=== PATIENT | female | born 1995 | race African-American/Black ===

== ENCOUNTER 2017-05-28 22:36 | Emergency (ER) | payer OTHER ==
[~2017-05-28] VITALS: Ht 170.2 cm; Wt 69.4 kg
[2017-05-28] MEDS ORDERED: FAMOTIDINE 20 MG/2 ML VIAL IVP ONE (23:00)
[2017-05-28] MEDS ORDERED: ONDANSETRON PF 4 MG/2 ML VIAL. IV ONE (23:00)
--- NOTE | 2017-05-28 23:02 | PHYS DOC ---
General Chief Complaint: NAUSEA/VOMITING/DIARRHEA Stated Complaint: N/V/D Time Seen by MD: 22:53 Source: patient Exam Limitations: no limitations Problems: History of Present Illness Initial Comments Patient is a 22-year-old female who comes to the ED complaining of nausea vomiting and diarrhea. Patient states that earlier today she developed sudden onset generalized abdominal discomfort with vomiting and diarrhea. She states she's had numerous episodes of nonbloody emesis and loose watery stools. She now has a headache and feels very weak with a very dry mouth and thinks she needs some fluids. She denies any travel or bad food exposure no focal abdominal pain complaints. No past medical history no surgeries patient is normally healthy. Timing/Duration: other Severity: severe Modifying Factors: worse with eating Associated Symptoms: headaches, nausea/vomiting, weakness Allergies: Coded Allergies: No Known Drug Allergies (Unverified , 05/28/17) Past Medical History Medical History: no pertinent history Surgical History: noncontributory Social History Smoker: non-smoker Alcohol: none Drugs: none Review of Systems Constitutional: denies chills, denies diaphoresis, denies fever, malaise, weakness Respiratory: denies cough, denies shortness of breath, denies wheezing Cardiovascular: denies chest pain, denies palpitations, denies syncope Gastrointestinal: see HPI Genitourinary: denies dysuria, denies frequency, denies hematuria Musculoskeletal: denies back pain, denies joint swelling, denies neck pain Psychiatric/Neurological: see HPI, headache, denies numbness, denies paresthesia, denies weakness Physical Exam General Appearance: mild distress (nausea, appears uncomfortable) Eyes: bilateral eye normal inspection, bilateral eye PERRL, bilateral eye EOMI Ear, Nose, Throat: hearing grossly normal, normal ENT inspection (mucous membranes very dry), normal pharynx Neck: non-tender, supple Respiratory: normal breath sounds, no respiratory distress Cardiovascular: normal peripheral pulses, regular rate, rhythm Gastrointestinal: soft (nondistended, abdominal muscle tenderness negative Martinez negative McBurney bowel sounds are normal no palpable mass) Back: no CVA tenderness, no vertebral tenderness Extremities: normal range of motion, non-tender, normal inspection Neurologic/Psychiatric: 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 Labs unremarkable. Urine dip positive for leukocyte esterase, urine culture is pending. Urine test is negative. The patient has tolerated by mouth fluids and is feeling better with a liter bolus of IV fluids. I discussed signs and symptoms to monitor and urgent indications to return. I discussed over-the- counter prescription medications and oral hydration as well as time off work. Patient expressed agreement and understanding with treatment plan. Departure Time of Disposition: 00:30 Disposition: 01 HOME, SELF-CARE Diagnosis: gastroenteritis, dehydration Condition: IMPROVED Patient Instructions: Dehydration, Adult, [id number], Viral Gastroenteritis, [id number] Additional Instructions: Clear liquids today, advance to bland diet tomorrow as tolerated. Aggressive hydration with Gatorade or water. [id number] Tylenol as needed. Eat banana daily to keep potassium elevated. Prescription: Zofran ODT No work or PT until 06/01. Follow-up at [facility] in 2-3 days for recheck. Return to ED with new or changing symptoms. KATHLEEN RUSSELL DO May 28, 2017 23:02
[2017-05-28] MEDS ORDERED: IV NORMAL SALINE 1,000ML 1,000 ML IV SCH (23:30)
[2017-05-28 23:35] LABS: BASO % 0 % (0-3); EOS # 0.1 x10^3/uL (0.0-0.7); EOS % 1 % (0-3); HEMATOCRIT 46.1 % (36.0-47.0); HEMOGLOBIN 15.6 g/dL (12.0-15.5); LYMPH # 0.6 x10^3/uL (1.0-4.8); LYMPH % 8 % (24-48); MEAN CORPUSCULAR HEMOGLOBIN 30 pg (25-35); MEAN CORPUSCULAR HGB CONC 34 g/dL (31-37); MEAN CORPUSCULAR VOLUME 89 fL (79-100); MONO # 0.4 x10^3/uL (0.0-1.1); MONO % 5 % (0-9); NEUT % 86 % (31-73); PLATELET COUNT 173 x10^3/uL (140-400); RED BLOOD COUNT 5.19 x10^6/uL (3.50-5.40); RED CELL DISTRIBUTION WIDTH 14.9 % (11.5-14.5); WHITE BLOOD COUNT 8.1 x10^3/uL (4.0-11.0)
[2017-05-28 23:44] LABS: ALBUMIN 3.7 g/dL (3.4-5.0); ALBUMIN/GLOBULIN RATIO 0.8 (1.0-1.7); CALCIUM 9.2 mg/dL (8.5-10.1); GFR 82.4; TOTAL BILIRUBIN 0.8 mg/dL (0.2-1.0); TOTAL PROTEIN 8.2 g/dL (6.4-8.2)
[2017-05-29] MEDS ORDERED: ONDA4TAB10 PO (00:29)
[2017-05-29 01:00] VITALS: BP 120/70
[2017-05-29] MEDS ORDERED: ONDANSETRON 4MG ODT 4TABLET STARTPACK. PO ONE (01:00)
[2017-05-29 01:15] LABS: BILIRUBIN,URINE NEG (NEG); CLARITY,URINE CLEAR; COLOR,URINE YELLOW; GLUCOSE,URINE NEG (NEG); NITRITE,URINE NEG (NEG); RBC,URINE OCC /HPF (0-2); UROBILINOGEN,URINE 0.2 mg/dL (0.2 mg/dL)
[2017-05-29 01:16] LABS: BACTERIA,URINE FEW /HPF (0-FEW); SQUAMOUS EPITHELIAL CELL,UR MOD /LPF
== END 2017-05-29 01:05 | disposition home or self-care (01) ==
LOC: ER 22:36
DX: K52.9 Noninfective gastroenteritis and colitis, unspecified (principal); E86.0 Dehydration
CPT/HCPCS: 36415; 80053; 81001; 81025; 83690; 85025; 87086; 96361; 96374; 96375; 99284; J2405; Q0162; S0028; J7030

== ENCOUNTER 2018-04-13 13:07 | Emergency (ER) | payer OTHER ==
[~2018-04-13] VITALS: Ht 170.2 cm; Wt 73.1 kg
[2018-04-13 13:07] VITALS: BP 107/49
[~2018-04-13 13:07] MED LIST: ONDA4TAB10 PO
--- NOTE | 2018-04-13 13:48 | PHYS DOC ---
Past History Past Medical History: No Pertinent History Past Surgical History: No Surgical History Alcohol Use: Rarely Drug Use: None Adult General Chief Complaint Chief Complaint: HAND PROBLEM HPI HPI 22-year-old female presents with right hand and forearm pain patient states that she started to notice discomfort with flexion of her right hand 5 days ago. The last 5 days, her workup to become more difficult as she now has pain in the right forearm when she flexes her right hand against any resistance. Even caring an empty tray today was painful. The pain is most severe in the second and third digit. The thumb is not involved. She states it is also tender if she rubs her proximal wrist. She denies any trauma or specific injury. She does work out daily with her , but they have not been doing any heavy weights for a few weeks. She denies fever or chills. She has no other injuries or concerns. Review of Systems Review of Systems Constitutional: Denies fever or chills [] Eyes: Denies change in visual acuity, redness, or eye pain [] HENT: Denies nasal congestion or sore throat [] Respiratory: Denies cough or shortness of breath [] Cardiovascular: No additional information not addressed in HPI [] GI: Denies abdominal pain, nausea, vomiting, bloody stools or diarrhea [] : Denies dysuria or hematuria [] Musculoskeletal: Right wrist and hand pain[] Integument: Denies rash or skin lesions [] Neurologic: Denies headache, focal weakness or sensory changes [] Endocrine: Denies polyuria or polydipsia [] All other systems were reviewed and found to be within normal limits, except as documented in this note. Allergies Allergies Allergies Coded Allergies Type Severity Reaction Last Updated Verified No Known Drug Allergies 05/28/17 No Physical Exam Physical Exam Constitutional: Well developed, well nourished, no acute distress, non-toxic appearance. [] HENT: Normocephalic, atraumatic, bilateral external ears normal, oropharynx moist, no oral exudates, nose normal. [] Eyes: PERRLA, EOMI, conjunctiva normal, no discharge. [] Neck: Normal range of motion, no tenderness, supple, no stridor. [] Cardiovascular:Heart rate regular rhythm, no murmur [] Lungs & Thorax: Bilateral breath sounds clear to auscultation [] Abdomen: Bowel sounds normal, soft, no tenderness, no masses, no pulsatile masses. [] Skin: Warm, dry, no erythema, no rash. [] Back: No tenderness, no CVA tenderness. [] Extremities: Pain with flexion against resistance of the second through fifth digits. Worse with second and third digit. No obvious deformity. No erythema or swelling. No significant loss of strength[] Neurologic: Alert and oriented X 3, normal motor function, normal sensory function, no focal deficits noted. [] Psychologic: Affect normal, judgement normal, mood normal. [] Current Patient Data Vital Signs Vital Signs Date Time Temp Pulse Resp B/P (MAP) Pulse Ox O2 Delivery O2 Flow Rate FiO2 04/13/18 13:07 98.8 67 16 100 Room Air EKG EKG [] Radiology/Procedures Radiology/Procedures [] Course & Med Decision Making Course & Med Decision Making Pertinent Labs and Imaging studies reviewed. (See chart for details) I believe the patient has an acute strain of the right flexor muscles in the forearm. I have advised that she ice the area a few times a day, no right arm workouts or physical training for one week. I have also advised that she take ibuprofen 6 her milligrams 3 times a day for 5 days. If she continues to have difficulty she will talk with her providers and consider physical therapy. She is stable for discharge at this time. [] Dragon Disclaimer Dragon Disclaimer This electronic medical record was generated, in whole or in part, using a voice recognition dictation system. Departure Departure: Impression: Primary Impression: Strain of flexor muscle at forearm level Disposition: 01 HOME, SELF-CARE Condition: STABLE Patient Instructions: Strain-SportsMed Additional Instructions: Take 600 mg of ibuprofen 3 times a day for the next 5 days. He should at least take ibuprofen with little bit of food to protect your stomach. Do not participate in right arm exercises or physical training until 04/22/18. GINA PAGE DO Apr 13, 2018 13:48
== END 2018-04-13 13:41 | disposition home or self-care (01) ==
LOC: ER 13:07
DX: S56.211A Strain of other flexor muscle, fascia and tendon at forearm level, right arm, initial encounter (principal); X58.XXXA Exposure to other specified factors, initial encounter; Y93.89 Activity, other specified; Y92.89 Other specified places as the place of occurrence of the external cause; Y99.8 Other external cause status
CPT/HCPCS: 99281

== ENCOUNTER 2019-04-05 13:20 | Emergency (ER) | payer OTHER ==
[2019-04-05 13:34] VITALS: BP 122/70
[2019-04-05] MEDS ORDERED: ONDANSETRON ODT 4 MG TAB.RAPDIS ONE (13:43)
--- NOTE | 2019-04-05 13:51 | PHYS DOC ---
Past History Past Medical History: No Pertinent History Past Surgical History: No Surgical History Smoking: Non-smoker Alcohol Use: Occasionally Drug Use: None Adult General Chief Complaint Chief Complaint: NAUSEA/VOMITING/DIARRHEA HPI HPI Patient is a 23-year-old female complains of nausea and vomiting for the past 2 days. No blood in the emesis. No diarrhea. No blood in the stool. 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 No surgeries on her abdomen in the past. She was treated last week for bacterial vaginosis and was not able to tolerate the pills. She is awaiting treatment through an intravaginal medication. Any oral intake makes the nausea and vomiting worse. Symptoms are moderate in intensity.[] Review of Systems Review of Systems Constitutional: Denies fever or chills [] Eyes: Denies change in visual acuity, redness, or eye pain [] HENT: Denies nasal congestion or sore throat [] Respiratory: Denies cough or shortness of breath [] Cardiovascular: No chest pain or palpitation[] GI: See history of present illness[] : Denies dysuria or hematuria [] Musculoskeletal: Denies back pain or joint pain [] Integument: Denies rash or skin lesions [] Neurologic: Denies headache, focal weakness or sensory changes [] Endocrine: Denies polyuria or polydipsia [] All other systems were reviewed and found to be within normal limits, except as documented in this note. Current Medications Current Medications Current Medications Medications (Trade) Dose Ordered Sig/Jaun Start Time Stop Time Status Last Admin Dose Admin Ondansetron HCl (Zofran Odt) 4 mg STK-MED ONCE 04/05/19 13:43 04/05/19 13:43 DC Allergies Allergies Allergies Coded Allergies Type Severity Reaction Last Updated Verified No Known Drug Allergies 05/28/17 No Physical Exam Physical Exam Constitutional: Well developed, well nourished, no acute distress, non-toxic appearance. [] HENT: Normocephalic, atraumatic, bilateral external ears normal, oropharynx moist, no oral exudates, nose normal. [] Eyes: PERRLA, EOMI, conjunctiva normal, no discharge. [] Neck: Normal range of motion, no tenderness, supple, no stridor. [] Cardiovascular:Heart rate regular rhythm, no murmur [] Lungs & Thorax: Bilateral breath sounds clear to auscultation [] Abdomen: Bowel sounds normal, soft, no tenderness, no masses, no pulsatile masses. [] Skin: Warm, dry, no erythema, no rash. [] Back: No tenderness, no CVA tenderness. [] Extremities: No tenderness, no cyanosis, no clubbing, ROM intact, no edema. [] Neurologic: Alert and oriented X 3, normal motor function, normal sensory function, no focal deficits noted. [] Psychologic: Affect normal, judgement normal, mood normal. [] Current Patient Data Vital Signs Vital Signs Date Time Temp Pulse Resp B/P (MAP) Pulse Ox O2 Delivery O2 Flow Rate FiO2 04/05/19 13:34 98.5 76 18 97 Room Air EKG EKG [] Radiology/Procedures Radiology/Procedures [] Course & Med Decision Making Course & Med Decision Making Pertinent Labs and Imaging studies reviewed. (See chart for details) ED course: Patient arrived, was placed in bed, and tolerated exam well. She was given Zofran. She was able to tolerate liquids. Urinalysis was obtained and evaluated. Findings were discussed with the patient who voiced understanding. All questions were answered. She was discharged in improved condition. Medical decision making: There is no evidence of oral intake intolerance. Nontoxic patient. She is not . We will treat with oral, outpatient antiemetics.[] Dragon Disclaimer Dragon Disclaimer This electronic medical record was generated, in whole or in part, using a voice recognition dictation system. Departure Departure: Impression: Primary Impression: Nausea and vomiting Disposition: 01 HOME, SELF-CARE Condition: IMPROVED Referrals: SAE PARKER PA-C (PCP) Follow-up in 2 days Patient Instructions: Nausea and Vomiting Additional Instructions: Drink plenty of fluids, frequent small sips. No fatty foods, no milk, and no pepper for the next 48 hours. For the next 48 hours eat a diet rich in carbohydrates with foods such as bananas, rice, applesauce, and toast. Follow-up with your regular doctor/sick call in 2 days. Return to the ER if unable to tolerate liquids, blood in the emesis, or any other concerns. Scripts Ondansetron Hcl (ZOFRAN) 4 Mg Tablet 1 TAB PO Q6HRS for nausea or vomiting, #20 TAB Prov: CHLOE JETT DO 04/05/19 Hyoscyamine Sulfate (LEVSIN) 0.125 Mg Tablet 0.125 MG PO QID for abdominal pain/cramping, #30 TAB Prov: CHLOE JETT DO 04/05/19 Problem Qualifiers Primary Impression: Nausea and vomiting Vomiting type: unspecified Vomiting Intractability: non-intractable Qualified Codes: R11.2 - Nausea with vomiting, unspecified CHLOE JETT DO Apr 05, 2019 13:51
[2019-04-05] MEDS ORDERED: ONDA4TAB7 PO (14:45)
[2019-04-05] MEDS ORDERED: HYOS0.1264 PO (14:45)
[2019-04-05 15:38] LABS: CLARITY,URINE CLEAR; COLOR,URINE YELLOW; GLUCOSE,URINE NEG (NEG)
[2019-04-05 15:39] LABS: BILIRUBIN,URINE NEG (NEG)
[2019-04-05 15:40] LABS: BACTERIA,URINE FEW /HPF (0-FEW); NITRITE,URINE NEG (NEG); SQUAMOUS EPITHELIAL CELL,UR MANY /LPF; UROBILINOGEN,URINE 1 mg/dL (0.2 mg/dL)
== END 2019-04-05 14:47 | disposition home or self-care (01) ==
LOC: ER 13:20
DX: R11.2 Nausea with vomiting, unspecified (principal)
CPT/HCPCS: 81001; 81025; 87086; 99284